=== PATIENT | female | born 1965 | race Caucasian/White ===

== ENCOUNTER 2020-06-22 11:02 | Day surgery (SDC) | payer OTHER ==
[2020-06-21 12:40] VITALS: BMI 33.4
[2020-06-22] MEDS ORDERED: ROPIVACAINE HCL 0.5% 30ML VIAL ONE (11:51)
[2020-06-22] MEDS ORDERED: MIDAZOLAM HCL 2 MG/2 ML SINGLE DOSE VIAL ONE ×2 (11:51→14:01)
[2020-06-22] MEDS ORDERED: BUPIVACAINE HCL/PF 0.25% (2.5MG/ML) 10 ML VIAL ONE (13:10)
[2020-06-22] MEDS ORDERED: PROPOFOL 20 ML ONE (14:01)
[2020-06-22] MEDS ORDERED: ePHEDrine SULFATE 50 MG/1 ML AMPULE ONE (14:16)
[2020-06-22] MEDS ORDERED: oxyCODONE HCL 5 MG TABLET PO PRN (15:15)
[2020-06-22] MEDS ORDERED: LACTATED RINGERS SOLUTION 1,000 ML IV SCH (15:15)
[2020-06-22] MEDS ORDERED: ONDANSETRON 4 MG/2 ML VIAL IVPUSH PRN (15:15)
--- NOTE | 2020-06-22 15:24 | OP ---
DATE OF OPERATION: 06/22/2020 PREOPERATIVE DIAGNOSIS: Right comminuted displaced distal radius fracture. POSTOPERATIVE DIAGNOSIS: Right comminuted displaced distal radius fracture. OPERATIVE PROCEDURE: 1. Open reduction internal fixation right comminuted displaced distal radius fracture with internal fixation of 3 or more fragments. 2. Right brachioradialis tenotomy. SURGEON: Ninoska Elkins MD COURT TRANSCRIBER: DEREJE Rooney ANESTHESIA: Regional and general. COMPLICATIONS: None. ESTIMATED BLOOD LOSS: Minimal. INDICATIONS FOR PROCEDURE: She presented with the above finding, was indicated for operative treatment. Risks, benefits and alternatives were discussed with her at length and proper informed consent was obtained. PROCEDURE: After proper identification of patient and correct operative site, patient was brought to the operating room, placed supine on the table. Prominences were well padded. Regional anesthesia and general anesthesia were given. Right upper extremity was prepped and draped in usual sterile fashion. Well-padded tourniquet was placed as well as sterile prep. Esmarch bandage to exsanguinate the right upper extremity. Tourniquet was inflated to 250 mmHg. Longitudinal incision made over the flexor carpi radialis tendon. Incision was taken sharply through skin with blunt and sharp dissection through subcutaneous tissue. Flexor carpi radialis tendon along with the contents of the carpal canal was bluntly and gently retracted in an ulnarward direction for the remainder of the procedure. Pronator quadratus was divided and elevated off the distal radius. Fracture was identified and reduction was not possible due to the pole of the brachioradialis. Therefore, a subperiosteal brachioradialis tenotomy was performed. The fracture was then reduced and held with an Arthrex distal radius locking plate. This provided secure stable fixation of the fracture in satisfactory position confirmed radiographically in multiple planes. Distal radioulnar joint and scapholunate intervals were stressed and found to be stable. The wound was irrigated and repaired in layers using 4-0 Vicryl and 4-0 Monocryl sutures. Steri-Strips and sterile dressings were applied. Volar wrist splint was placed. Patient was reversed from anesthesia, brought to recovery room in stable condition. She tolerated procedure well. Tony Ray, the district administrative assistant, was integral throughout the procedure. He was necessary to hold reduction while hardware was implanted. This procedure could not have been performed without a skilled operative district administrative assistant. NINOSKAMira [id number]
[2020-06-22 16:31] VITALS: BP 120/78; PULSE 85; TEMP 97.9
== END 2020-06-22 16:31 | disposition home or self-care (01) ==
LOC: FASU 11:02
PROVIDERS: ATTEND Orthopaedic Surgery Hand Surgery
PROC: 0LN50ZZ Release Right Lower Arm and Wrist Tendon, Open Approach (ICD-10-PCS; 2020-06-22)
PROC: 0PSH04Z Reposition Right Radius with Internal Fixation Device, Open Approach (ICD-10-PCS; principal; 2020-06-22 14:16)
DX: S52.531A Colles' fracture of right radius, initial encounter for closed fracture (principal); X58.XXXA Exposure to other specified factors, initial encounter; Y93.9 Activity, unspecified; Y92.9 Unspecified place or not applicable
CPT/HCPCS: 25290; 25609; C1713; 73110-TC-RT-FY; 94760